=== PATIENT | male | born 1950 | race Caucasian/White ===

== ENCOUNTER 2025-01-01 11:06 | Day surgery (SDC) | payer MEDICARE ==
[2024-12-28 13:05] LABS: MEAN PLATELET VOLUME 8.3 FL (7.4-10.4); RED CELL DISTRIBUTION WIDTH 15.4 % (11.5-14.5)
[2024-12-28 13:17] LABS: APTT 24 SECONDS (22-32); INR 1.0 INR
[2024-12-28 13:29] LABS: CHOL/HDL RATIO 3.3 (0.00-4.99); CREATININE 2.91 MG/DL (0.60-1.10); LDL CHOLESTEROL 88 MG/DL (50-100); TOTAL CARBON DIOXIDE 22.8 MMOL/L (24-32); eGFR 21 ML/MIN
[~2025-01-01] VITALS: Ht 182.9 cm; Wt 96.3 kg
--- NOTE | 2025-01-01 11:26 | ELECTROCARDIOGRAPH REPORT ---
[facility] Test Date: 2025-01-01 Test Time: 11:22:14 Pat Name: CELIA GOTTI Department: [facility] Patient ID: [id number] Room: Gender: M Television Operator: KKIA : 1950 Requested By: DARI ARANDA Order Number: [id number] Reading MD: Dr. Avery Aranda Measurements Intervals [place] Rate: 37 P: 0 MA: 0 QRS: 53 QRSD: 85 T: 34 QT: 467 QTc: 367 Interpretive Statements Atrial fibrillation Minimal ST depression, inferior leads Electronically Signed On 01-02-2025 6:38:[address] Avery Aranda Please click the below link to view image of tracing.
[2025-01-01] MEDS ORDERED: ASPI-611 PO (11:52)
[2025-01-01] MEDS ORDERED: CARV6.253 PO (11:52)
[2025-01-01] MEDS ORDERED: AMLO10TA PO (11:52)
[2025-01-01] MEDS ORDERED: LOSA100T58 PO (11:52)
[2025-01-01] MEDS ORDERED: ATOR-2 PO (11:52)
[2025-01-01 12:29] VITALS: BP 175/88; PULSE 48; RESP 16; TEMP 98.2; O2SAT 97
[2025-01-01 12:32] VITALS: RESP 16; O2SAT 97
== END 2025-01-01 13:35 | disposition home or self-care (01) ==
LOC: SSTAY O 11:06
PROVIDERS: ATTEND Student in an Organized Health Care Education/Training Program
DX: R94.39 Abnormal result of other cardiovascular function study (principal); Z53.8 Procedure and treatment not carried out for other reasons; I12.9 Hypertensive chronic kidney disease with stage 1 through stage 4 chronic kidney disease, or unspecified chronic kidney disease; N18.9 Chronic kidney disease, unspecified; E78.00 Pure hypercholesterolemia, unspecified; I48.91 Unspecified atrial fibrillation; Z79.01 Long term (current) use of anticoagulants; Z79.899 Other long term (current) drug therapy
CPT/HCPCS: 36415; 80048; 80061; 83695; 85025; 85610; 85730; 93005; J7030; Z7610